=== PATIENT | female | born 1980 | race Caucasian/White ===

== ENCOUNTER 2016-12-02 14:39 | Emergency (ER) | payer BC ==
[2016-12-02] MEDS ORDERED: FENTANYL 100 MCG/2 ML VIAL ONE (15:09)
[2016-12-02] MEDS ORDERED: ONDANSETRON HCL 4 MG/2 ML VIAL ONE (15:09)
--- NOTE | 2016-12-02 15:49 | ER NURSING DOCUMENTATION ---
Nurse's Notes [facility] Name:Kala Alejandro Age:36 yrs Sex:Female :1980 Arrival Date:12/02/2016 Time:14:39 Bed4 Private MD:Mingo Delaney Diagnosis:Dislocation of Elbow Presentation: 12/02 14:41 Presenting complaint: Patient states: pt fell backwards on her left arm while roller st skating. pt now has left elbow pain. Transition of care: Home. Care prior to arrival: Dr. Banuelos did a partial reduction of the left elbow on the seen. 14:41 Method Of Arrival: Private Vehicle st 14:49 Notified ED Physician of Dr. Bernabe notified. st 14:49 Acuity: JOHNATHAN 2 st Triage Assessment: 15:06 General: Appears uncomfortable, Behavior is cooperative. Pain: Complains of pain in st left elbow Pain currently is 9 out of 10 on a pain scale. Pain began suddenly, 30 min ago Aggravated by movement. Cardiovascular: No deficits noted. Respiratory: No deficits noted. GI: No deficits noted. Musculoskeletal: Circulation, motion, and sensation intact Bony deformity noted of left elbow. Historical: - Allergies: No known drug Allergies; - Home Meds: 1. None - PMHx: None; - Tetanus: < 10 years. - Ebola Screening: : Patient denies exposure to infectious person. Patient denies travel to an Ebola-affected area in the 21 days before illness onset. . - Social history: Smoking status: Patient states was never smoker of tobacco. Patient/guardian denies using alcohol, marijuana. Screenin:08 Infectious Disease Risk None. Abuse screen: Denies threats or abuse. Denies injuries st from another. pt feels safe at home. Nutritional screening: No deficits noted. Assessment: 15:10 General: elbow spontanisly reduced with moment for x-rays.. st Vital Signs: 15:14 Pain 5/10; st ED Course: 14:41 Patient arrived in ED. ama 14:41 Mingo Delaney MD is Private Physician. ama 14:49 Aditi Pate RN is Primary Nurse. st 14:[address] 14:51 Ice [address] to injury. st 15:01 Inserted peripheral IV: 20 gauge in right antecubital area and blood collected. Oxygen st Oxygen administration via nasal cannula @ 2L/min. 15:06 Mj Bernabe MD is Attending Physician. ok 15:08 Valuables Remains with patient Patient has correct armband on for positive st identification. Bed in low position. Call light in reach. Side rails up X 1. Pulse Ox - RN Monitoring Only. 15:14 Sling & swathe to left arm. st 15:20 Valente Barry DO is Referral Physician. sc Administered Medications: 15:04 Drug: fentaNYL (PF) 50 mcg; Route: IVP; Site: right antecubital; st 15:47 Follow up: Response: Pain is decreased st 15:04 Drug: Zofran 4 mg; Route: IVP; Infused Over: 2 mins; Site: right antecubital; st 15:47 Follow up: Response: Nausea is decreased st Outcome: 15:22 Discharge ordered by . ok 15:47 Discharged to home ambulatory. st 15:47 Condition: improved 15:47 Discharge instructions given to patient, Instructed on discharge instructions, follow up and referral plans. medication usage, Ortho Care 15:48 Patient [address] the ED. st 12/03 09:43 Discharge F/U Call: Unable to reach: no answer nf Signatures: Aditi Pate RN Jana Vargas RN RN Mj Parrish MD MD sc Averdick, Andrew, Reg Reg ama
--- NOTE | 2016-12-02 15:49 | ER PHYSICIAN DOCUMENTATION ---
Physician Documentation [facility] Name:Kala Alejandro Age:36 yrs Sex:Female :1980 Arrival Date:12/02/2016 Time:14:39 Bed4 Private MD:Mingo Delaney ED, Scott Disposition: 12/02/16 15:22 Discharged to Home/Self Care. Impression: Dislocation of Elbow. - Condition is Good. - Discharge Instructions: ELBOW DISLOCATION. - Prescriptions for Hydrocodone- Acetaminophen 5-325 mg Oral Tablet - take 1 tablet by ORAL route every 6 hours As needed; 20 tablet. - Medical Reconciliation form form. - Follow up: Valente Barry DO; When: 1 week; Reason: Continuance of care. - Problem is new. - Symptoms have improved. HPI: 12/02 15:17 This 36 yrs old Female presents to ER via Private Vehicle with complaints of sc Elbow Injury - L. 15:17 The patient or guardian complains of deformity, injury. The complaints affect the left sc elbow. Context: The problem was sustained at a sports field or court. Onset: The symptom(s)/episode began/occurred just prior to arrival. Treatment prior to arrival includes: no previous treatment. Modifying factors: The symptoms are alleviated by nothing. Associated signs and symptoms: The patient has no apparent associated signs or symptoms. Historical: - Allergies: No known drug Allergies; - Home Meds: 1. None - PMHx: None; - Tetanus: < 10 years. - Ebola Screening: : Patient denies exposure to infectious person. Patient denies travel to an Ebola-affected area in the 21 days before illness onset. . - Social history: Smoking status: Patient states was never smoker of tobacco. Patient/guardian denies using alcohol, marijuana. ROS: 15:17 Constitutional: Negative for fever, chills, and weight loss. sc Eyes: Negative for injury, pain, redness, and discharge. ENT: Negative for injury, pain, and discharge. Neck: Negative for injury, pain, and swelling. Cardiovascular: Negative for chest pain, palpitations, and edema. Respiratory: Negative for shortness of breath, cough, wheezing, and pleuritic chest pain. Back: Negative for injury and pain. Skin: Negative for injury, rash, and discoloration. 15:17 Neuro: Negative for headache, weakness, numbness, tingling, and seizure. sc 15:17 MS/extremity: Positive for injury or acute deformity. Exam: Constitutional: This is a well developed, well nourished patient who is awake, alert, and in no acute distress. Head/Face: Normocephalic, atraumatic. 15:18 Neck: Trachea midline, no thyromegaly or masses palpated, and no cervical sc lymphadenopathy. Supple, full range of motion without nuchal rigidity, or vertebral point tenderness. No meningismus. 15:18 Musculoskeletal/extremity: Extremities: grossly normal except: deformity, Circulation is intact in all extremities. Sensation intact. Severe pain noted. Vital Signs: 15:14 Pain 5/10; st MDM: 15:06 Patient medically screened. ia 15:19 Differential diagnosis: dislocation, closed fracture. Data reviewed: vital signs, ia nurses notes, radiologic studies, plain films, and as a result, I will discharge patient. Counseling: I had a detailed discussion with the patient and/or guardian regarding: the historical points, exam findings, and any diagnostic results supporting the discharge/admit diagnosis, radiology results, the need for outpatient follow up, for a referral to a specialist. Medication response: The patient's symptoms have improved. ED course: spontaneous reduction during xrays. . 12/02 14:50 Order name: Ice Packs; Complete Time: 15:04 st 12/02 14:51 Order name: Iv Saline Lock; Complete Time: 15:04 12/02 15:47 Order name: ORTHO: Arm Sling; Complete Time: 15:47 st Dispensed Medications: 15:04 Drug: fentaNYL (PF) 50 mcg; Route: IVP; Site: right antecubital; st 15:47 Follow up: Response: Pain is decreased st 15:04 Drug: Zofran 4 mg; Route: IVP; Infused Over: 2 mins; Site: right antecubital; st 15:47 Follow up: Response: Nausea is decreased st Signatures: Aditi Pate RN RN st Chew, Scott, MD MD ia
--- NOTE | 2016-12-05 15:06 | RADIOLOGY REPORT ---
Initial views of the left elbow demonstrate posterior dislocation with associated coronoid process fracture, which demonstrates approximately 5 mm of distal displacement. Followup films demonstrate interval reduction. No new abnormality is identified. The humerus and radius appear intact. IMPRESSION: Posterior fracture dislocation of the left elbow with subsequent reduction. JAZMINE
== END 2016-12-02 15:49 | disposition home or self-care (01) ==
LOC: ER 14:39
DX: S53.006A Unspecified dislocation of unspecified radial head, initial encounter (principal); V00.121A Fall from non-in-line roller-skates, initial encounter; Y92.331 Roller skating rink as the place of occurrence of the external cause; Y93.51 Activity, roller skating (inline) and skateboarding
CPT/HCPCS: 96374; 96375; 99284; J2405

== ENCOUNTER 2016-12-11 06:26 | Day surgery (SDC) | payer BC ==
[2016-12-11] MEDS ORDERED: ROPIVACAINE HCL 0.5% 30 ML ONE (06:49)
[2016-12-11] MEDS ORDERED: NORMAL SALINE FLUSH 10 ML ONE ×2 (06:59→10:25)
[2016-12-11] MEDS ORDERED: BACITRACIN 14 APP/14 GM TUBE TOPICAL ONE (06:59)
[2016-12-11] MEDS ORDERED: BACITRACIN 50,000 UNITS VIAL IM ONE ×2 (07:00→10:25)
[2016-12-11] MEDS ORDERED: BUPIVACAINE/EPI 0.25% 1 VIAL VIAL ONE (07:00)
[2016-12-11] MEDS ORDERED: CEFAZOLIN SODIUM 1 GM in NORMAL SALINE MINI-BAG+ 100 ML IV ONE ×2 (07:17→12:18)
[2016-12-11] MEDS ORDERED: METOCLOPRAMIDE HCL 10 MG/2 ML VIAL IV ONE (07:28)
[2016-12-11] MEDS ORDERED: LIDOCAINE HCL 1% 20 ML VIAL SUBCUT ONE ×2 (07:28→12:18)
[2016-12-11] MEDS ORDERED: CEFAZOLIN SODIUM 1 GM/10 ML VIAL ONE ×2 (07:29→11:34)
[2016-12-11] MEDS ORDERED: METOCLOPRAMIDE HCL 10 MG/2 ML VIAL ONE (07:29)
[2016-12-11] MEDS ORDERED: FAMOTIDINE IN SALINE, ISO-OSM 50 ML IV ONE (07:29)
[2016-12-11] MEDS ORDERED: FAMOTIDINE IN SALINE, ISO-OSM 20 MG/50 ML PIGGYBACK IV SCH (07:30)
[2016-12-11] MEDS ORDERED: ROCURONIUM BROMIDE 50 MG/5 ML VIAL IV ONE (07:32)
[2016-12-11] MEDS ORDERED: DEXAMETHASONE 4 MG/ML VIAL ONE (07:32)
[2016-12-11] MEDS ORDERED: FENTANYL 100 MCG/2 ML VIAL ONE ×2 (07:32→11:58)
[2016-12-11] MEDS ORDERED: LIDOCAINE HCL 2% 20 ML VIAL ONE (07:32)
[2016-12-11] MEDS ORDERED: FENTANYL 100 MCG/2 ML VIAL IV PRN ×2 (07:45→12:18)
[2016-12-11] MEDS ORDERED: HYDROmorphone HCL 1 MG/ML SYR IV PRN ×2 (07:45→12:18)
[2016-12-11] MEDS ORDERED: MEPERIDINE HCL/PF 50 MG/ML SYR IV PRN ×2 (07:45→12:18)
[2016-12-11] MEDS ORDERED: LACTATED RINGERS 1,000 ML IV SCH ×2 (08:00→12:18)
[2016-12-11] MEDS ORDERED: ONDANSETRON HCL 4 MG/2 ML VIAL ONE (11:07)
[2016-12-11] MEDS ORDERED: KETOROLAC TROMETHAMINE 30 MG/ML VIAL ONE (11:30)
[2016-12-11] MEDS ORDERED: NORMAL SALINE FLUSH 30 ML ONE (13:25)
[2016-12-11 13:49] VITALS: BP 118/77; RESP 18; TEMP 97.3; O2SAT 90
[2016-12-11 13:50] VITALS: PULSE 95
--- NOTE | 2016-12-11 18:13 | OPERATIVE REPORT ---
DATE OF SURGERY: 12/11/16 SURGEON: Valente Barry DO ANESTHESIA: General. PREOPERATIVE DIAGNOSIS: Left elbow coronoid fracture with elbow instability. POSTOPERATIVE DIAGNOSIS: Left elbow coronoid fracture with lateral ulnar collateral and medial ulnar collateral ligament disruption. OPERATION PERFORMED: Left coronoid open reduction, internal fixation with repairs of the medial collateral ligament and lateral ulnar collateral ligament. ESTIMATED BLOOD LOSS: 100 mL. TOTAL TOURNIQUET TIME: 120 minutes. ORTHOPEDIC IMPLANTS: Arthrex corkscrew suture anchors 3.5 x 10 mm metal. PROCEDURE NOTE: The patient was brought to the operating room suite and after administration of general anesthesia and a scalene block in the preoperative holding area, the left upper extremity was prepped and draped in sterile fashion. The patient was positioned on the operating room table with all bony prominences well padded in the supine position, with her arm over the top of a Sesay stand above her chest, which was also well padded. A well padded Coban wrap was around the wrist with a vaginal speculum hung over the patient's right side of the Sesay stand, this kept the shoulder at 90 degrees of flexion and the elbow at 90 degrees of flexion over the Sesay stand. A posterior approach was used and the area was injected with 0.25% bupivacaine with epinephrine prior to incision. The incision curved around the olecranon process. Dissection was carried down to the ulnar nerve which was released of its fascia and transposed anteriorly. A stitch was placed through the fat to hold the nerve in place throughout the case. Dissection was carried down to the medial epicondyle. The interval between the triceps and the brachialis proximally and the brachialis and pronator teres distally was developed. The common flexor origin was dissected through Sharpeys fibers off of the medial epicondyle, and was tagged for later repair. The plane was developed and the coronoid fracture was identified. There was some cartilage which was damaged on the medial epicondyle and was loose in the joint which was debrided and copiously irrigated with bacitracin infused with normal saline. The coronoid fracture was identified, and was reduced to the ulna using a sharp bone reduction clamp. K-wires were inserted in a posterior to anterior fashion through the ulna and out through the tip of the coronoid, after the K-wires were removed one by one followed by placement of Daquan suture passers. The #2 Fiberwire was passed from an anterior to posterior position out the back of the ulna, securing the coronoid into place, and was tied down. With the coronoid now repaired, attention was drawn to the medial collateral ligament, which was repaired and the common flexor origin was attached back to the medial epicondyle with the aforementioned suture anchor. Prior to this closure, the anterior capsule was also repaired. Attention was then drawn to the lateral aspect of the elbow where the lateral flap was advanced, exposing the lateral epicondyle. It was noted that there was some torn ligament tissue in this area. The wrist extensors were still intact on the lateral epicondyle, but the lateral ulnar collateral ligament with both its posterior and radial components were avulsed off of their insertion. Another suture anchor was inserted into the lateral aspect of the humerus as the lateral ulnar collateral ligament was still intact on its insertion on the ulna. A Jayda-type stitch was passed up through the ligament and it was tied down reattaching it to its insertion site on the humerus. The repair was reinforced with 2-0 Fiberwire. The sutures that were pre-loaded in the anchors was #1 Fiberwire. The fascia was closed back over the repair. The ulnar nerve was left in its groove, and a fatty sling was used to stabilize the ulnar nerve in the groove posterior to the medial epicondyle. This closure of the fatty layer and skin and fascia over the medial aspect of the elbow continued and then the deep fascia was closed with 0 Vicryl, followed by 3-0 Vicryl subcutaneously, followed by a running modified horizontal mattress suture at the level of the skin. Prior to closure, the elbow was copiously irrigated with bacitracin infused with normal saline. The incision was dressed with bacitracin ointment, Xeroform, 4x4s, cast padding, and an Jorge bandage. The patients arm was fitted back in a sling and she was transferred from the operating room suite to the recovery room in stable condition. JAZMINE
--- NOTE | 2016-12-13 19:56 | RADIOLOGY REPORT ---
Six views of the left elbow from the C-Arm in the operating room are compared with prior films dated 12/02/2016. There is evidence of open reduction and internal fixation of the coronoid process fracture. Bilateral distal humeral soft tissue anchors are noted. No other change is identified. IMPRESSION: Findings consistent with coronoid fracture fixation and radial and ulnar collateral ligamentous reconstruction. [facility]
--- NOTE | 2016-12-14 11:22 | PREOPERATIVE H&P ---
History of Present Illness (Valente Galdamezrickey CRUM; 12/05/2016 1:10 PM) The patient is a 36 year old female. Patient dislocated her left elbow when she fell while roller-skating on 12/02/16. The patient had a fall outstretched left arm. The patient was subsequently seen in emergency room and the fracture was relocated. Patient has had her arm in a sling since then. Her pain is been well- controlled. She has had multiple episodes of catching and locking of the elbow when she moves her elbow and hand a certain way. She has to use her contralateral hand to force her elbow back up into place and she feels a click or pop at this point. Allergies (Shweta Moya RN; 12/05/2016 11:43 AM) Neosporin AF *DERMATOLOGICALS* Hives. Family History (Shweta Moya RN; 12/05/2016 11:42 AM) Colon Cancer Father. Social History (Shweta Moya RN; 12/05/2016 11:42 AM) Tobacco Use Never smoker. Alcohol Use Does not drink alcohol. Medication History (Shwtea Moya RN; 12/05/2016 11:41 AM) Advil (200MG Capsule, 4 caps Oral q 6-8 hrs prn) Active. Medications Reconciled Review of Systems (Valente Galdamezrickey CRUM; 12/05/2016 1:10 PM) General Not Present- Chills and Fever. Skin Not Present- Erythema, Skin Color Changes and Skin Problems. HEENT Not Present- Sleep Apnea. Neck Not Present- Neck Pain. Respiratory Not Present- Cough and Shortness of Breath. Cardiovascular Not Present- Chest Pain, Difficulty Breathing On Exertion, Fainting and Leg Pain and/or Swelling. Gastrointestinal Not Present- Abdominal Pain, Nausea and Vomiting. Female Genitourinary Not Present- Painful Urination. Musculoskeletal Not Present- Decreased Range of Motion, Joint Pain, Joint Stiffness, Joint Swelling, Muscle Pain and Muscle Weakness. Neurological Not Present- Dizziness, Focal Neurological Symptoms, Numbness in extremities, Trouble walking and Weakness. Psychiatric Not Present- Anorexia, Anxiety and Depression. Endocrine Not Present- Weight Loss. Hematology Not Present- Bleeding Problems, DVT and Easy Bruising. Vitals (Shweta Moya RN; 12/05/2016 11:40 AM) 12/05/2016 11:40 AM Weight: 210.6 lb Height: 63.5in Body Surface Area: 1.99 m Body Mass Index: 36.72 kg/m Temp.: 98.6F Pulse: 84 (Regular) Resp.: 16 (Unlabored) BP: 130/84 (Sitting, Left Arm, Standard) Physical Exam (Valente Barry DO; 12/05/2016 1:14 PM) Physical examination of the left elbow demonstrates positive swelling around the elbow. Hand is normal sensation. Range of motion is within normal limits of the fingers and wrist. Range of motion is from 90 of flexion 35 of extension. Patient's elbow locks up when she returns from extension to flexion and she also has severe pain in the elbow with pronation supination. She has medial pain with valgus and lateral pain with varus and extension. Plain film x-rays demonstrate a coronoid fracture which is displaced 3 mm involving a 8 mm fragment. On the AP projection there appears to be an avulsion fracture or calcifications along the medial aspect of the ulna and distal humerus. Assessment & Plan (Valente Barry DO; 12/05/2016 1:20 PM) Displaced fracture of coronoid process of left ulna, initial encounter for closed fracture (S52.042A) Impression: After educating the patient regarding treatment options with their associated risks and benefits, the patient elected to proceed with surgical treatment of the injury/pathology with LEFT ELBOW OPEN REDUCITON INTERNAL FIXATION WITH LIGAMENT REPAIR. The risks and benefits of the specific procedure were explained and all questions and concerns were addressed and answered. Post operative rehabilitation requirements and expectations for optimal outcome were reviewed and the patient confirmed understanding these and committed to compliance. All questions answered. Dislocation of left elbow, initial encounter (S53.105A) Tear of ulnar collateral ligament of left elbow, initial encounter (S53.442A) Signed by Valente Barry DO (12/05/2016 1:21 PM) There are no interval changes. Signed Valente Barry DO 12/11/16 JAZMINE
== END 2016-12-11 14:06 | disposition home or self-care (01) ==
LOC: SDS 06:26
PROVIDERS: ATTEND Orthopaedic Surgery
DX: S52.042A Displaced fracture of coronoid process of left ulna, initial encounter for closed fracture (principal); S53.442A Ulnar collateral ligament sprain of left elbow, initial encounter; S53.105A Unspecified dislocation of left ulnohumeral joint, initial encounter
CPT/HCPCS: 76000; C1713; J0690; J1885; J2405; J2550; J2765; J2795

== ENCOUNTER 2016-12-22 15:43 | Observation (INO) | payer BC ==
[2016-12-22] MEDS ORDERED: NORMAL SALINE 2,000 ML IV ONE (15:51)
[2016-12-22] MEDS ORDERED: ZOLPIDEM TARTRATE 5 MG TABLET PO PRN (15:51)
[2016-12-22] MEDS ORDERED: POLYETHYLENE GLYCOL 3350 17 GM POWD.PACK PO PRN (15:51)
[2016-12-22] MEDS ORDERED: MAG-AL PLUS XS SUSP 30 ML UDC PO PRN (15:51)
[2016-12-22] MEDS ORDERED: HOME MEDICATION LIST NEEDED 1 EA EACH MC ONE (15:51)
[2016-12-22] MEDS ORDERED: HYDROmorphone HCL 1 MG/ML SYR IV PRN (16:05)
[2016-12-22] MEDS ORDERED: CEFTRIAXONE SODIUM IV SCH (17:00)
[2016-12-22] MEDS ORDERED: NORMAL SALINE MINI IV SCH (17:00)
[2016-12-22] MEDS ORDERED: VANCOMYCIN HCL 1,000 MG in NORMAL SALINE ADDVANTAGE 250 ML IV SCH (17:00)
--- NOTE | 2016-12-22 17:08 | RADIOLOGY REPORT ---
History: Postoperative follow-up. COMPARISON: 12/02/2016. FINDINGS: 2 views of the left elbow obtained. There has been interval reduction. There has also been interval ORIF. Small screws are noted within the medial and lateral humeral condyles. There appears t o be healing fracture of the coronoid process of the ulna. A small joint effusion is present. Periart icular soft tissue swelling is identified. Small calcific density projects slightly medial to the med ial joint space. IMPRESSION: Status post ORIF and reduction. Final Electronic Signature: This report was electronically signed by Shahid Ovalles MD, FACR on 5:06 PM. [email or web address] /
[2016-12-22] MEDS: CEFTRIAXONE SODIUM IV SCH (17:30)
[2016-12-22] MEDS: NORMAL SALINE MINI IV SCH (17:30)
[2016-12-22] MEDS: FAMOTIDINE 20 MG TABLET PO SCH (17:36)
--- NOTE | 2016-12-22 18:04 | HISTORY & PHYSICAL ---
DATE OF ADMISSION: 12/22/16 ATTENDING PHYSICIAN: Gilbert Sharp MD PRIMARY CARE PHYSICIAN: Mingo Delaney MD PRIMARY SURGEON: Valente Barry MD REASON FOR ADMISSION: Sepsis. HISTORY OF PRESENT ILLNESS: The patient is a 36-year-old healthy lady with a recent trauma to her left elbow. She was in her usual state of health but was roller skating at the [facility] rink 2 weeks ago and sustained a fall and landed on her left elbow with a complex fracture with a coracoid process of the left ulna. This was a closed fracture and required internal fixation with repair of a complete tear of the lateral collateral ligament of her left elbow and repair of the ulnar collateral ligament in her left elbow, as well as ulnar nerve translocation. She has been wearing her brace and progressing with mobility with no increase pain or tenderness, but yesterday, developed a high fever to 105 with associated sweats and rigors. She took Motrin with some improvement in fever and rigors but discussed care with Dr. Barry who recommended that she be seen this morning. In clinic he checked vitals and noted that she was afebrile. Also checked labs and noted that she had a leukocytosis with markedly elevated CRP. She was treated with Rocephin and discharged home, and we were asked to review patient and labs. Patient returned to clinic. She was noted to have low-grade fever. Her review of systems was otherwise unremarkable with exception of headache. She specifically denies cough , cold, congestion or sore throat and has no sick contacts with exception of she did attend a basketball at the recreation center for her 8-year-old and 11- year-old children. She has no abdominal discomfort. No diarrhea. No dysuria or urinary frequency. There is no dizziness noted. No otalgia. She does note decreased appetite, though no nausea or emesis. She has some muscle aches and headache that is similar to when she has had flu, but different she states, and notes that she has also had tingling in her left arm from her shoulder to her hand. It seems to emanate from her left elbow and progress upwards and then distally as well. This started a day or so prior to the onset of fever and rigors. REVIEW OF SYSTEMS: She has no asthma, bronchitis, tuberculosis, diabetes, seizures or heart problems. No prior surgery other than the left elbow. She is G2, P2 with an 11-year-old and an 8-year-old. She does have a history of recurrent otitis media as a young adult, although nil for the last 10 years. ALLERGIES: Neosporin. IMMUNIZATIONS: Per history are up to date. FAMILY HISTORY: Notable for colon cancer in her father. SOCIAL HISTORY: She is a lifelong nonsmoker and does not consume alcohol. MEDICATIONS Advil for pain. Percocet for pain. PHYSICAL EXAMINATION VITAL SIGNS: Temperature currently is 97.7, heart rate 106, respiratory rate 16 , blood pressure 114/80. She is 203 pounds. Saturating 96% on room air. GENERAL: She is pleasant, but looks ill. There is no jaundice. No anemia, cyanosis, clubbing or lymphadenopathy appreciated. HEENT: Oropharynx is tacky. Her TMs are clear bilaterally. There is no rhinorrhea. NECK: No lymphadenopathy in her neck nor axilla. She does have a tender nodule at the location of the left epitrochlear lymph node, although per patient and surgeon, this is a similar location to an anchor. Her neck is supple with no masses or bruits appreciated. CARDIAC: S1, S2 without murmur. RESPIRATORY: Good air entry into the bases. ABDOMEN: Soft and nontender. No masses are appreciated. Bowel sounds are present. : Deferred. Patient's last period was 3 weeks ago and normal. She does not use tampons, and does not have retained tampon. EXTREMITY: No edema, otherwise unremarkable. Left elbow, after removing brace and Jorge wrap, she has a well opposed scar with bruising. A small blister in the mid portion that is not warm or tender to palpation. She has decreased range of motion in extension but without marked tenderness and is able to pronate and supinate without tenderness. There is no warmth over the joint nor wound. There is no drainage. In the left medial axillary side, she has a small nodule that is consistent with an epitrochlear lymph node and tender. LABORATORY DATA: Negative influenza. MRSA screen of the nares which is pending. Her sedimentation rate was 12. CRP greater than 90. CMP showed a glucose of 143 with an ALT of 56. A CBC showed a white count of 14.1, 78% neutrophils, 15% bands, only 3% lymphocytes, 3% monocytes and no eosinophils. A urinalysis showed 30+ protein and 10 erythrocytes. A specific gravity of 1025 and otherwise unremarkable. IMPRESSION 1. Systemic inflammatory response syndrome/sepsis with fever, leukocytosis and tachycardia. The eosinopenia is a marker for sepsis as well. Blood cultures have been obtained and most likely source is her left elbow but with a normal sedimentation rate and markedly elevated CRP, this appears to be acute, and with a positive epitrochlear lymph node, this could be adenitis or a cellulitis. X-rays are unremarkable and patient has been started on Vancomycin and Rocephin with 1 gram Vancomycin q.12 hours and kinetics to follow, and have discussed with pharmacy for consultation. Patient also received Rocephin 2 grams IV and 2 liters of normal saline. Will follow up blood cultures and surrogate markers of infection, including sedimentation rate, CRP and white count. Will follow up the MRSA nasal screen. Will continue Dilaudid for pain as well as Tylenol and Motrin for pain and fever. If patient re-spikes temperature or fever, may also repeat blood cultures this evening. If slow resolution, would consider a CT to rule out infected seroma or hematoma, assessing for abscess. 2. Fever and chills. Again with #1, this likely represents fever and chills from sepsis, will follow up markers of infection, empiric antibiotics to cover an infected joint. Will consider repeating blood cultures. 3. Complex left elbow fracture, status post open reduction, internal fixation and repair of ligament tears. cc: Dr. Mingo LUCERO
[2016-12-22] MEDS ORDERED: NORMAL SALINE 1,000 ML IV ONE ×2 (18:39→23:45)
[2016-12-22] MEDS: VANCOMYCIN HCL 1,000 MG in NORMAL SALINE ADDVANTAGE 250 ML IV SCH (19:44)
[2016-12-22] MEDS: SODIUM CHLORIDE 0.45 % 1,000 ML IV SCH ×2 (20:00→23:58)
[2016-12-22] MEDS: IBUPROFEN 600 MG TABLET PO PRN (20:54)
[2016-12-22] MEDS ORDERED: NORMAL SALINE 1,000 ML IV SCH (23:00)
[2016-12-23 07:18] LABS: BASOPHIL# 0.1 X 10^3uL (0.0-0.1); BASOPHILS 0.5 % (0.0-2.0); EOSINOPHILS 0.5 % (0.0-6.0); EOSINOPHILS# 0.1 X 10^3uL (0.0-0.4); HEMATOCRIT 38.7 % (36.0-48.0); HEMOGLOBIN 12.8 g/dL (12.0-16.0); LYMPHOCYTES 9.9 % (20.0-40.0); LYMPHOCYTES# 1.1 X 10^3uL (0.8-3.8); MEAN CELL VOLUME 86.8 fL (80.0-100.0); MEAN CORPUS. HGB CONCENTRATION 33.2 g/dL (32.0-36.0); MEAN CORPUSCULAR HEMOGLOBIN 28.8 pg (29.0-35.0); MEAN PLATELET VOLUME 7.2 fL (7.4-10.4); MONOCYTES 10.6 % (2.0-10.0); MONOCYTES# 1.2 X 10^3uL (0.2-1.0); NEUTROPHILS 78.5 % (54.0-75.0); NEUTROPHILS# 8.6 X 10^3uL (2.6-6.7); PLATELET COUNT 212 X 10^3uL (130-440); RED BLOOD COUNT 4.46 X 10^6uL (4.20-6.10); RED CELL DISTRIBUTION WIDTH 12.5 % (11.5-14.5); WHITE BLOOD COUNT 11.1 X 10^3uL (3.9-10.7)
[2016-12-23 07:29] LABS: BLOOD UREA NITROGEN 11 mg/dL (7-17); C-REACTIVE PROTEIN > 90.0 mg/L (<10.0); CALCIUM 7.7 mg/dL (8.4-10.2); CHLORIDE 111 mmol/L (98-107); CREATININE 0.7 mg/dL (0.5-1.0); EST GLOMERULAR FILTRATION RATE > 60 mL/min; GLUCOSE 103 mg/dL (70-100); SODIUM 139 mmol/L (137-145)
[2016-12-23 08:02] LABS: ERYTHROCYTE SEDIMENTATION RATE 14 MM/HR (0-20)
[2016-12-23] MEDS: VANCOMYCIN HCL 1,000 MG in NORMAL SALINE ADDVANTAGE 250 ML IV SCH ×2 (08:10→19:49)
--- NOTE | 2016-12-23 08:32 | PROGRESS NOTE: IM APSO ---
Assessment and Plan - Date of Encounter Date of Encounter: 12/23/16 (1) Fever and chills Status: Acute Assessment and plan: likely sepsis with improved WBC and differential nocte and improved HR, cultures pending, increased left elbow pain ?skin. Exam improved. May need repeat labs tomorrow, continue Abx for now, f/u cultures and consider CT of elbow joint Current Visit: Yes (2) Leukocytosis Status: Acute Assessment and plan: improved some, likely related to left elbow cellulitis at bullae site, improved Current Visit: Yes (3) Cellulitis of arm, left Status: Acute Assessment and plan: at ruptured bullae site. Improved exam today. May need evaluation for deeper seated infection. Awaiting formal ortho recommendations. Current Visit: Yes (4) Sepsis, unspecified organism Status: Acute Assessment and plan: SIRS improved Current Visit: Yes - Time Spent With Patient Total time spent with greater than 50% in coordination of care (as documented) at patient's floor/unit and/or counseling patient: 16-24 minutes IM: PN Subjective General: pain, fever, chills Cardiovascular: no chest pain, no chest pressure, no palpitations Respiratory: no cough, no sputum Gastrointestinal: no abdominal pain, no nausea, no vomiting, no constipation Musculoskeletal: pain, swelling (36 yo complex elbow injury and repair, now with fever/rigors, increasing pain at elbow. Cultures thus far negative, fever attenuated some. White count better) IM: PN Objective Exam - I&O/Vital Signs I&O: Intake & Output 12/22/16 12/23/16 12/23/16 21:59 05:59 13:59 Intake Total 900 2425 Output Total 500 1000 Balance 400 1425 Weight 92.079 kg 97 kg Intake: IV 600 1925 Bilateral Forearm 600 1925 Oral 300 500 Output: Urine 500 1000 Other: Urine Appearance Clear Urine Color Yellow Voiding Method Toilet # Voids 1 2 Vital Signs: Last Vital Signs Temp 37.7 C H 12/23/16 06:20 Pulse 87 12/23/16 06:20 Resp 19 12/23/16 06:20 BP 118/72 12/23/16 06:20 Pulse Ox 96 12/23/16 06:20 Oxygen Flow Rate 0.5 Oxygen Delivery Method Nasal Cannula - Constitutional General appearance: Present: obese - Head Head exam: Present: atraumatic - Eye Eye exam: Absent: conjunctival injection - ENT ENT exam: Present: mucous membranes moist - Neck Neck exam: Present: full ROM. Absent: lymphadenopathy - Respiratory Respiratory exam: Present: CTAB - Cardiovascular Cardiovascular exam: Present: RRR - GI/Abdominal GI/Abdominal exam: Present: normal bowel sounds, soft - Skin Skin exam: Present: other (left elbow, prominent epithrochlear node but edema/ erythema/wound and ruptured bullae all improved and ROM both A/P 90 degrees) - Lab Labs: Laboratory Last Values WBC 11.1 X 10^3uL (3.9-10.7) H 12/23/16 07:10 RBC 4.46 X 10^6uL (4.20-6.10) 12/23/16 07:10 Hgb 12.8 g/dL (12.0-16.0) 12/23/16 07:10 Hct 38.7 % (36.0-48.0) 12/23/16 07:10 MCV 86.8 fL (80.0-100.0) 12/23/16 07:10 MCH 28.8 pg (29.0-35.0) L 12/23/16 07:10 MCHC 33.2 g/dL (32.0-36.0) 12/23/16 07:10 RDW 12.5 % (11.5-14.5) 12/23/16 07:10 Plt Count 212 X 10^3uL (130-440) 12/23/16 07:10 MPV 7.2 fL (7.4-10.4) L 12/23/16 07:10 Neutrophils % 78.5 % (54.0-75.0) H 12/23/16 07:10 Lymphocytes % 9.9 % (20.0-40.0) L 12/23/16 07:10 Eosinophils % 0.5 % (0.0-6.0) 12/23/16 07:10 Basophils % 0.5 % (0.0-2.0) 12/23/16 07:10 Neutrophils # 8.6 X 10^3uL (2.6-6.7) H 12/23/16 07:10 Lymphocytes # 1.1 X 10^3uL (0.8-3.8) 12/23/16 07:10 Monocytes 10.6 % (2.0-10.0) H 12/23/16 07:10 Monocytes # 1.2 X 10^3uL (0.2-1.0) H 12/23/16 07:10 Eosinophils # 0.1 X 10^3uL (0.0-0.4) 12/23/16 07:10 Basophils # 0.1 X 10^3uL (0.0-0.1) 12/23/16 07:10 ESR 14 MM/HR (0-20) 12/23/16 07:10 Sodium 139 mmol/L (137-145) 12/23/16 07:10 Potassium 4.0 mmol/L (3.5-5.1) 12/23/16 07:10 Chloride 111 mmol/L (98-107) H 12/23/16 07:10 Carbon Dioxide 22 mmol/L (22-30) 12/23/16 07:10 BUN 11 mg/dL (7-17) 12/23/16 07:10 Creatinine 0.7 mg/dL (0.5-1.0) 12/23/16 07:10 GFR Calculation > 60 mL/min 12/23/16 07:10 Glucose 103 mg/dL (70-100) H 12/23/16 07:10 Calcium 7.7 mg/dL (8.4-10.2) L 12/23/16 07:10 C-Reactive Protein > 90.0 mg/L (<10.0) H 12/23/16 07:10 Quality Questions - VTE Prophylaxis Assessment VTE Present on Admission?: No Patient at risk for venous thromboembolism?: Yes VTE Risk Level: Low Risk VTE Medical Contraindication: N/A- VTE prophylaxsis ord
[2016-12-23] MEDS: FAMOTIDINE 20 MG TABLET PO SCH (09:16)
[2016-12-23] MEDS: ENOXAPARIN SODIUM 30 MG/0.3 ML SYR SUBCUT SCH (09:16)
[2016-12-23] MEDS: ACETAMINOPHEN 325 MG TABLET PO PRN ×2 (09:20→15:04)
[2016-12-23] MEDS: SODIUM CHLORIDE 0.45 % 1,000 ML IV SCH (12:37)
[2016-12-23] MEDS: IBUPROFEN 600 MG TABLET PO PRN ×2 (12:38→17:49)
[2016-12-23] MEDS: NORMAL SALINE MINI IV SCH (17:41)
[2016-12-23] MEDS: CEFTRIAXONE SODIUM IV SCH (17:41)
--- NOTE | 2016-12-23 18:59 | CONSULTATION ---
DATE OF CONSULTATION: 12/23/16 TRADE SALES ASSISTANT: Valente Barry DO HISTORY OF PRESENT ILLNESS: Patient is a 36-year-old female who underwent left elbow open reduction, internal fixation with reconstruction and repairs of medial and lateral ulnar collateral ligaments about 2 weeks ago after sustaining a cornoid fracture with a dislocation of the elbow while roller skating. The patient was seen in my clinic yesterday and presented complaining of fevers. While seen in the office, she did not have a temperature. She did bring a temperature log from last evening, and she did have some high fevers. The elbow was examined and appeared normal with respect to wound healing. Patients labs were drawn and blood cultures were obtained. Once all labs had been obtained, the patient was given an injection of Rocephin and consultation with internal medicine followed after the patient was discharged home while the further labs were pending. I instructed the patient that she would be called back shortly later on that day and given instructions with regard to the findings of her labs. During that time I consulted with internal medicine to discuss this patient's case. She was admitted to the hospital by internal medicine for the treatment of systemic inflammatory response syndrome/sepsis with fever, leukocytosis and tachycardia coupled with fevers and chills. PHYSICAL EXAMINATION (on the hospital floor today) Pleasant appearing female in no apparent distress with her left elbow wrapped in an Jorge bandage and propped up on some pillows with her hinged elbow brace in place. The hand does have some swelling on the dorsum, as her hand was slightly lower than her elbow, which caused some edema in the hand. The brace and Jorge bandage were removed, and the ABD was removed, and there was no drainage on the ABD. The incision was well approximated with good early scar formation on the proximal distal aspects. The whole incision was well approximated but in the mid section there is an area of ecchymotic skin with some loose skin on the surface, which appeared to be a blister with hemosiderin which is resolving. Overall the arm appears better than yesterday with less heat around the elbow and less swelling. There is no fluctuance. Range of motion has not gotten any worse with 45 degrees of extension and 105 degrees of flexion. Patient has mild discomfort with range of motion. The peripheral neurovascular status is intact with normal sensation and adequate perfusion. The elbow was wrapped up with an Jorge bandage and the brace was repositioned and the hand and arm were positioned in an elevated posture to reduce swelling in the hand. The patient was instructed to move her fingers and to make a fist frequently throughout the day to alleviate swelling in the hands. The patient's blood cultures are pending. The source of infection is likely the elbow, but the location of the current infection is still unclear. If the patient continues to have temperature spikes despite receiving IV antibiotics, then it must be assumed that there is an isolated area within the elbow with a locus of infection that will need to be openly irrigated and debrided. However, if the patient continues to response to the IV antibiotics and there is good efficacy, then we will continue with this course. The sutures were still in place. The patient is postoperative day #12; therefore, the sutures were removed after a sterile prep with Chlorhexidine and alcohol. The skin was well approximated and healing well, therefore no Steri-Strips were utilized. I will follow this patient closely and continue to consult with her internal medicine physician in the coming days. JAZMINE
[2016-12-24] MEDS: SODIUM CHLORIDE 0.45 % 1,000 ML IV SCH (05:11)
[2016-12-24 07:56] LABS: BASOPHILS 0.6 % (0.0-2.0); EOSINOPHILS 2.2 % (0.0-6.0); EOSINOPHILS# 0.2 X 10^3uL (0.0-0.4); HEMATOCRIT 38.7 % (36.0-48.0); HEMOGLOBIN 12.8 g/dL (12.0-16.0); LYMPHOCYTES# 0.9 X 10^3uL (0.8-3.8); MEAN CELL VOLUME 86.7 fL (80.0-100.0); MEAN CORPUSCULAR HEMOGLOBIN 28.6 pg (29.0-35.0); MEAN PLATELET VOLUME 7.7 fL (7.4-10.4); MONOCYTES 8.8 % (2.0-10.0); MONOCYTES# 0.7 X 10^3uL (0.2-1.0); NEUTROPHILS 76.4 % (54.0-75.0); NEUTROPHILS# 6.1 X 10^3uL (2.6-6.7); PLATELET COUNT 193 X 10^3uL (130-440); RED BLOOD COUNT 4.46 X 10^6uL (4.20-6.10); RED CELL DISTRIBUTION WIDTH 12.4 % (11.5-14.5); WHITE BLOOD COUNT 7.9 X 10^3uL (3.9-10.7)
[2016-12-24 08:11] LABS: BLOOD UREA NITROGEN 9 mg/dL (7-17); CALCIUM 8.5 mg/dL (8.4-10.2); CHLORIDE 108 mmol/L (98-107); CREATININE 0.6 mg/dL (0.5-1.0); EST GLOMERULAR FILTRATION RATE > 60 mL/min; GLUCOSE 98 mg/dL (70-100); POTASSIUM 3.9 mmol/L (3.5-5.1); SODIUM 138 mmol/L (137-145)
[2016-12-24 08:25] LABS: C-REACTIVE PROTEIN > 90.0 mg/L (<10.0)
[2016-12-24] MEDS: FAMOTIDINE 20 MG TABLET PO SCH (08:29)
[2016-12-24] MEDS: ENOXAPARIN SODIUM 30 MG/0.3 ML SYR SUBCUT SCH (08:29)
[2016-12-24] MEDS ORDERED: VANCOMYCIN HCL IV SCH (10:00)
[2016-12-24] MEDS ORDERED: AMOX TR/CLAV 875/125 MG 1 TAB TABLET PO SCH ×3 (10:00→21:00)
[2016-12-24] MEDS ORDERED: NORMAL SALINE ADDVANTAGE IV SCH (10:00)
[2016-12-24 10:20] VITALS: RESP 16; O2SAT 95
--- NOTE | 2016-12-24 10:59 | PROGRESS NOTE: IM APSO ---
Assessment and Plan - Date of Encounter Date of Encounter: 12/24/16 (1) Fever and chills Status: Acute Assessment and plan: abated, cellulitis markedly imroved and rom of joint argues against infected joint. bullae was likely nidus of infection near incision. cultures negative. white count markedly improved and differential resovling to normal. surrogate markers infection normalizing with exception crp still elevated and esr now also up bit. these may take few days to resolve. plan to change to po antibiotics. f/u labs on sunday and has appt with Dr. Barry already. She understands worrisome sx/sx to seek expedited care. Offered to contine IV abx for additional day as markers improving though not normal verses oral abx and close f/u (risk/beneits) options reviewed. Plan for DC. Current Visit: Yes (2) Leukocytosis Status: Acute Assessment and plan: resolving Current Visit: Yes (3) Cellulitis of arm, left Status: Acute Assessment and plan: at ruptured bullae site. Improved exam today. plan to change to PO Abx,DC home today after receives dose of vanco/rocephin, reviewed with nursing and Dilcia from Pharmacy Current Visit: Yes (4) Sepsis, unspecified organism Status: Acute Assessment and plan: SIRS resolved Current Visit: Yes - Time Spent With Patient Total time spent with greater than 50% in coordination of care (as documented) at patient's floor/unit and/or counseling patient: 16-24 minutes IM: PN Subjective General: no pain (pain/fever/chills all improved last 24 hours.), no fever, no chills Cardiovascular: no chest pain, no chest pressure, no palpitations Respiratory: no cough, no sputum Gastrointestinal: no abdominal pain, no nausea, no vomiting, no constipation Musculoskeletal: pain (largely abated including lancenating pain), swelling ( markedly improved) IM: PN Objective Exam - I&O/Vital Signs I&O: Intake & Output 12/23/16 12/24/16 12/24/16 21:59 05:59 13:59 Intake Total 1600 1700 Output Total 1500 1375 Balance 100 325 Weight 97 kg Intake: IV 1100 950 Bilateral Forearm 1100 Right Forearm 950 Oral 500 750 Output: Urine 1500 1375 Other: Urine Appearance Clear Clear Urine Color Yellow Yellow Stool Size Moderate Moderate Stool Characteristics Soft Soft Voiding Method Toilet Toilet Toilet # Bowel Movements 1 Vital Signs: Last Vital Signs Temp 37.1 C 12/24/16 08:30 Pulse 82 12/24/16 08:30 Resp 16 12/24/16 08:30 BP 121/80 12/24/16 08:30 Pulse Ox 95 12/24/16 08:30 Oxygen Flow Rate 1 Oxygen Delivery Method Room Air - Constitutional General appearance: Present: obese - Head Head exam: Present: atraumatic - Eye Eye exam: Absent: conjunctival injection - ENT ENT exam: Present: mucous membranes moist - Neck Neck exam: Present: full ROM. Absent: lymphadenopathy - Skin Skin exam: Present: other (wound opposed, non tender and edema over skin abated , no erythema and prior ruptured bulla non tender and forming eschar. epitrochlear node smaller and non tender. no axillary nodes and rom of elbow markdely improved.) - Lab Labs: Laboratory Last Values WBC 7.9 X 10^3uL (3.9-10.7) 12/24/16 07:10 RBC 4.46 X 10^6uL (4.20-6.10) 12/24/16 07:10 Hgb 12.8 g/dL (12.0-16.0) 12/24/16 07:10 Hct 38.7 % (36.0-48.0) 12/24/16 07:10 MCV 86.7 fL (80.0-100.0) 12/24/16 07:10 MCH 28.6 pg (29.0-35.0) L 12/24/16 07:10 MCHC 33.0 g/dL (32.0-36.0) 12/24/16 07:10 RDW 12.4 % (11.5-14.5) 12/24/16 07:10 Plt Count 193 X 10^3uL (130-440) 12/24/16 07:10 MPV 7.7 fL (7.4-10.4) 12/24/16 07:10 Neutrophils % 76.4 % (54.0-75.0) H 12/24/16 07:10 Lymphocytes % 12.0 % (20.0-40.0) L 12/24/16 07:10 Eosinophils % 2.2 % (0.0-6.0) 12/24/16 07:10 Basophils % 0.6 % (0.0-2.0) 12/24/16 07:10 Neutrophils # 6.1 X 10^3uL (2.6-6.7) 12/24/16 07:10 Lymphocytes # 0.9 X 10^3uL (0.8-3.8) 12/24/16 07:10 Monocytes 8.8 % (2.0-10.0) 12/24/16 07:10 Monocytes # 0.7 X 10^3uL (0.2-1.0) 12/24/16 07:10 Eosinophils # 0.2 X 10^3uL (0.0-0.4) 12/24/16 07:10 Basophils # 0.0 X 10^3uL (0.0-0.1) 12/24/16 07:10 ESR 21 MM/HR (0-20) H 12/24/16 05:00 Sodium 138 mmol/L (137-145) 12/24/16 07:10 Potassium 3.9 mmol/L (3.5-5.1) 12/24/16 07:10 Chloride 108 mmol/L (98-107) H 12/24/16 07:10 Carbon Dioxide 23 mmol/L (22-30) 12/24/16 07:10 BUN 9 mg/dL (7-17) 12/24/16 07:10 Creatinine 0.6 mg/dL (0.5-1.0) 12/24/16 07:10 GFR Calculation > 60 mL/min 12/24/16 07:10 Glucose 98 mg/dL (70-100) 12/24/16 07:10 Calcium 8.5 mg/dL (8.4-10.2) 12/24/16 07:10 C-Reactive Protein > 90.0 mg/L (<10.0) H 12/24/16 07:10 Vancomycin Trough 6.4 ug/mL (5.0-20.0) 12/24/16 04:00
[2016-12-24 11:02] VITALS: BP 131/89; PULSE 84; TEMP 98.7
[2016-12-24] MEDS: VANCOMYCIN HCL 1,000 MG in NORMAL SALINE ADDVANTAGE 250 ML IV SCH (11:06)
--- NOTE | 2016-12-24 11:06 | DC SUMMARY: IM Note ---
Discharge Summary: IM/Peds Provider: Date of Admission: 12/22/16 Admitting Provider: VIKTORIYA RICHEY Attending Provider: VIKTORIYA RICHEY Discharging Provider: VIKTORIYA RICHEY Primary Care Provider: Discharge Date: 12/24/16 Consults: 12/22/16 16:03 Pharmacy Consult [CONS] Routine Reason: vanco kinetics/dosing - Diagnosis (1) Fever and chills Status: Acute (2) Leukocytosis Status: Acute (3) Cellulitis of arm, left Status: Acute (4) Sepsis, unspecified organism Status: Acute - Time Spent with Patient Total time spent providing and/or coordinating discharge services: Discharge - Patient/Caregiver Discharge Instructions Activity Level: as tolerated and as dictated from Dr. Barry regarding recovery from surgery Diet: regular, recommend probiotic or yogurt between doses of antibiotics Additional Instructions: Please elevated left elbow as much as feasible. I recommend reed gauze/ dressings daily and as needed, light wrap with VICTOR M and brace. May cover with Saran Wrap for showers to keep dry (if wound gets moist, pat dry with towel then use hair specialist on cool setting) Follow up: VIDYA BARRY DO [ACTIVE (Staff Physician)] - 12/26/16 CANDELARIO NOVAK DO [ACTIVE (Staff Physician)] - 7 Days Overall discharge status: patient is progressing back to baseline Home Medications: Zolpidem Tartrate [Ambien*] 5 mg PO HS PRN #15 tablet PRN Reason: Insomnia Amox Tr/Clav 875/125 mg [Augmentin 875/125*] 1 tab PO BID #20 tablet Famotidine [Pepcid] 20 mg PO DAILY #30 tablet Orders: C-REACTIVE PROTEIN [CHEM] Location: Determined By Patient CBC AUTO DIF, MDIF/RMOR IF IND [HEM] Location: Determined By Patient ERYTHROCYTE SEDIMENTATION RATE [HEM] Location: Determined By Patient Disposition: HOME, SELF-CARE Discharge Summary Data - Medication History Medication History: Home Medications Other [No Known Home Medications] 12/22/16 Inpatient Medications 12/22/16 15:51 Acetaminophen [Tylenol] 650 mg PO Q6H PRN Mag-Al Plus Xs Susp [Maalox Liquid] 30 ml PO Q4H PRN Polyethylene Glycol 3350 [miraLAX] 17 gm PO BID PRN Zolpidem Tartrate [Ambien] 5 mg PO HS PRN 12/22/16 16:00 Sodium Chloride 0.45 % [1/2 Normal Saline 1000 ml] 1,000 ml IV CONT 12/22/16 16:05 HYDROmorphone HCL [Dilaudid] 1 mg IV Q4H PRN Ibuprofen [Motrin] 600 mg PO Q6H PRN 12/22/16 16:15 Famotidine [Pepcid] 20 mg PO DAILY 12/22/16 17:30 Ceftriaxone Sodium [Rocephin] 2 gm Normal Saline Mini-Bag+ [Sodium Chloride 100 ml Mini-Bag Plus] 100 ml IV Q24H 12/23/16 09:00 Enoxaparin Sodium [Lovenox] 30 mg SUBCUT DAILY 12/24/16 10:00 Amox Tr/Clav 875/125 mg [Augmentin 875/125] 1 tab PO BID Vancomycin HCl [Vancocin] 1,250 mg Normal Saline Addvantage [Sodium Chloride 0.9% Addv 250 ml] 250 ml IV Q8H Procedures and tests throughout hospitalization: Completed Lab Orders 12/23/16 07:10 BASIC METABOLIC PANEL [CHEM] AMDRAW C-REACTIVE PROTEIN [CHEM] Stat CBC AUTO DIF, MDIF/RMOR IF IND [HEM] AMDRAW ERYTHROCYTE SEDIMENTATION RATE [HEM] Stat 12/24/16 04:00 VANCOMYCIN TROUGH [CHEM] Routine 12/24/16 05:00 ESR [ERYTHROCYTE SEDIMENTATION RATE] [HEM] AMDRAW 12/24/16 07:10 BASIC METABOLIC PANEL [CHEM] AMDRAW CBC AUTO DIF, MDIF/RMOR IF IND [HEM] AMDRAW crp arthritis [C-REACTIVE PROTEIN] [CHEM] AMDRAW Completed Imaging Orders 12/22/16 16:27 ELBOW; [address] [place] [address] [RAD] Stat Pending Orders 12/22/16 15:51 Admit: Observation Routine Activity: Ambulate TID Assess pulse oximetry CONTINUOUS Intake and Output QSHIFT I&O Obtain weight 0600 Resuscitation Status Routine Telemetry monitoring CONTINUOUS TELE Titrate Oxygen TITRATE TO >90% Vital Signs ROUTINE VITALS (Q4H) Acetaminophen [Tylenol] 650 mg PO Q6H PRN Mag-Al Plus Xs Susp [Maalox Liquid] 30 ml PO Q4H PRN Polyethylene Glycol 3350 [miraLAX] 17 gm PO BID PRN Zolpidem Tartrate [Ambien] 5 mg PO HS PRN 12/22/16 15:53 Latin Professor Consult [CM] Routine 12/22/16 16:00 Sodium Chloride 0.45 % [1/2 Normal Saline 1000 ml] 1,000 ml IV CONT 12/22/16 16:03 Pharmacy Consult [CONS] Routine 12/22/16 16:05 HYDROmorphone HCL [Dilaudid] 1 mg IV Q4H PRN Ibuprofen [Motrin] 600 mg PO Q6H PRN 12/22/16 16:15 Famotidine [Pepcid] 20 mg PO DAILY 12/22/16 16:53 Apply ice to affected area . Elevate affected extremity . 12/22/16 17:30 Ceftriaxone Sodium [Rocephin] 2 gm Normal Saline Mini-Bag+ [Sodium Chloride 100 ml Mini-Bag Plus] 100 ml IV Q24H 12/22/16 21:37 BLOOD CULTURE [BC] Stat 12/22/16 Dinner Regular [DIET] 12/23/16 09:00 Enoxaparin Sodium [Lovenox] 30 mg SUBCUT DAILY 12/24/16 10:00 Amox Tr/Clav 875/125 mg [Augmentin 875/125] 1 tab PO BID Vancomycin HCl [Vancocin] 1,250 mg Normal Saline Addvantage [Sodium Chloride 0.9% Addv 250 ml] 250 ml IV Q8H Labs on day of discharge: Labs from last 24 hours 12/24/16 12/24/16 12/24/16 07:10 05:00 04:00 WBC 7.9 RBC 4.46 Hgb 12.8 Hct 38.7 MCV 86.7 MCH 28.6 L MCHC 33.0 RDW 12.4 Plt Count 193 MPV 7.7 Neutrophils % 76.4 H Lymphocytes % 12.0 L Eosinophils % 2.2 Basophils % 0.6 Neutrophils # 6.1 Lymphocytes # 0.9 Monocytes 8.8 Monocytes # 0.7 Eosinophils # 0.2 Basophils # 0.0 ESR 21 H Sodium 138 Potassium 3.9 Chloride 108 H Carbon Dioxide 23 BUN 9 Creatinine 0.6 GFR Calculation > 60 Glucose 98 Calcium 8.5 C-Reactive Protein > 90.0 H Vancomycin Trough 6.4 Preliminary micro results at discharge 12/22/16 21:37 Blood Culture - Preliminary Blood NO GROWTH TO DATE 12/22/16 21:27 Blood Culture - Preliminary Blood NO GROWTH TO DATE - Impressions 36 yo active lady with recent fall and trauma to left elbow, s/p repair of ligaments/bone. Well for 2 weeks then acute fever/rigors, SIRS and likely source skin lef telbow. Improved rapidly with IV Abx. Cultures negative. Surrogate markers of infection largely normalized (HR/temp/WBC/differential), CRP still elevated. Plan Augmentin as outpatient, f/u Sunday. Labs before f/ u. IM: Discharge Physical Exam - I&O/Vital Signs I&O: Intake & Output 12/23/16 12/24/16 12/24/16 21:59 05:59 13:59 Intake Total 1600 1700 Output Total 1500 1375 Balance 100 325 Weight 97 kg Intake: IV 1100 950 Bilateral Forearm 1100 Right Forearm 950 Oral 500 750 Output: Urine 1500 1375 Other: Urine Appearance Clear Clear Urine Color Yellow Yellow Stool Size Moderate Moderate Stool Characteristics Soft Soft Voiding Method Toilet Toilet Toilet # Bowel Movements 1 Vital Signs: Last Vital Signs Temp 37.1 C 12/24/16 08:30 Pulse 82 12/24/16 08:30 Resp 16 12/24/16 08:30 BP 121/80 12/24/16 08:30 Pulse Ox 95 12/24/16 08:30 Oxygen Flow Rate 1 Oxygen Delivery Method Room Air - Constitutional General appearance: Present: obese - Head Head exam: Present: atraumatic - Eye Eye exam: Absent: conjunctival injection - ENT ENT exam: Present: mucous membranes moist - Neck Neck exam: Present: full ROM. Absent: lymphadenopathy - Respiratory Respiratory exam: Present: CTAB - Cardiovascular Cardiovascular exam: Present: RRR - GI/Abdominal GI/Abdominal exam: Present: normal bowel sounds, soft - Skin Skin exam: Present: other (wound opposed, non tender and edema over skin abated , no erythema and prior ruptured bulla non tender and forming eschar. epitrochlear node smaller and non tender. no axillary nodes and rom of elbow markdely improved.)
== END 2016-12-24 11:10 | disposition home or self-care (01) ==
LOC: IN 16:26
PROVIDERS: ADMIT Hospitalist; ATTEND Hospitalist
DX: R65.10 Systemic inflammatory response syndrome (SIRS) of non-infectious origin without acute organ dysfunction (principal); L03.818 Cellulitis of other sites; S52.042D Displaced fracture of coronoid process of left ulna, subsequent encounter for closed fracture with routine healing; S53.442D Ulnar collateral ligament sprain of left elbow, subsequent encounter; S53.105D Unspecified dislocation of left ulnohumeral joint, subsequent encounter
CPT/HCPCS: 36415; 80048; 80202; 85025; 85651; 86140; 87040; 93041; 96365; 96366; 96367; 96372; G0378; G0379; J1170; J1650; J3370; J7030